=== PATIENT | female | born 1955 | race Caucasian/White ===

== ENCOUNTER 2019-07-27 12:13 | Emergency (ER) | payer MEDICARE, OTHER ==
[~2019-07-27] VITALS: Ht 165.1 cm; Wt 72.7 kg
[~2019-07-27 12:13] MED LIST: AMOX500C2 ORAL; ASPI-817 PO; ATOR20TA17; DULA0.75 SC; ESOM40CA; IBUP-1544 ORAL; IBUP800T48; INSU100I31 SC; LOSA1TAB25 ORAL; LOSA1TAB29; MAGN400O19 PO; MICHCT8025; NAPR-985
[2019-07-27 12:19] VITALS: Ht 165.1 cm; Wt 72.7 kg
[2019-07-27] MEDS ORDERED: SOD CHLORIDE 0.9% 1,000 ML IV STA (12:24)
[2019-07-27] MEDS ORDERED: IOHEXOL 14.3 MG(I)/ML (ADULT) BTL PO ONE ×2 (13:00)
[2019-07-27] MEDS ORDERED: IOHEXOL 300MG/ML 150 ML BTL ONE (15:58)
[2019-07-27] MEDS ORDERED: SOD CHLORIDE 0.9% 100 ML ONE (15:58)
[2019-07-27] MEDS ORDERED: MINERAL OIL 133 ML ENEMA PR ONE (17:00)
[2019-07-27 18:40] VITALS: BP 133/75; PULSE 86; RESP 18
== END 2019-07-27 18:58 | disposition home or self-care (01) ==
LOC: E/R 12:13
DX: R10.31 Right lower quadrant pain (principal); R10.32 Left lower quadrant pain; I10 Essential (primary) hypertension; Z79.4 Long term (current) use of insulin; Z79.82 Long term (current) use of aspirin
CPT/HCPCS: 74177; 80053; 82150; 83690; 84484; 85025; 85610; 85730; 93005; 99285; J7030; Q9967